=== PATIENT | male | born 1995 | race African-American/Black ===

== ENCOUNTER 2018-04-23 07:45 | Emergency (ER) | payer BC ==
[~2018-04-23] VITALS: Ht 177.8 cm; Wt 68.0 kg
[~2018-04-23 07:45] MED LIST: MOTRIN400 MG PO
[2018-04-23 08:18] LABS: BILIRUBIN NEGATIVE (NEGATIVE); BLOOD NEGATIVE (NEGATIVE); CLARITY CLEAR (CLEAR); COLOR YELLOW (YELLOW); GLUCOSE NEGATIVE (NEGATIVE); KETONE NEGATIVE (NEGATIVE); LEUKO ESTERASE NEGATIVE (NEGATIVE); NITRITE NEGATIVE (NEGATIVE); SPECIFIC GRAVITY 1.015 (1.005-1.030); UROBILINOGEN 0.2 E.U./dl (0.2-1.0)
[2018-04-23 08:43] LABS: BACTERIA TRACE; MUCOUS 1+
[2018-04-26 12:11] LABS: GONOCOCCUS BY NAA Negative (Negative)
== END 2018-04-23 08:39 | disposition home or self-care (01) ==
LOC: ED 07:45
PROVIDERS: Emergency Medicine
DX: R30.0 Dysuria (principal); Z11.3 Encounter for screening for infections with a predominantly sexual mode of transmission

== ENCOUNTER 2018-06-07 20:01 | Emergency (ER) | payer BC ==
[~2018-06-07] VITALS: Ht 177.8 cm; Wt 68.0 kg
[2018-06-07] MEDS ORDERED: AMOXICILLIN500 M3 PO (21:31)
[2018-06-07] MEDS ORDERED: ZOFRAN4 MG PO (21:31)
== END 2018-06-07 21:45 | disposition home or self-care (01) ==
LOC: ED 20:01
DX: J02.9 Acute pharyngitis, unspecified (principal); F17.200 Nicotine dependence, unspecified, uncomplicated; Z90.89 Acquired absence of other organs

== ENCOUNTER 2019-09-19 13:38 | Emergency (ER) | payer OTHER ==
[~2019-09-19 13:38] MED LIST changes: +AMOXICILLIN500 M3 PO; +ZOFRAN4 MG PO
[2019-09-19] MEDS ORDERED: DOXYCYCLINE100 M3 PO (14:11)
[2019-09-19 14:50] LABS: BILIRUBIN 1+ (NEGATIVE); BLOOD NEGATIVE (NEGATIVE); CLARITY SL CLOUDY (CLEAR); COLOR YELLOW (YELLOW); GLUCOSE NEGATIVE (NEGATIVE); KETONE NEGATIVE (NEGATIVE); LEUKO ESTERASE NEGATIVE (NEGATIVE); NITRITE NEGATIVE (NEGATIVE); PH 6.5 (5.0-9.0); UROBILINOGEN 0.2 E.U./dl (0.2-1.0); WBC 0-2 wbc/hpf (0-5)
[2019-09-19 14:51] LABS: BACTERIA TRACE; EPITHELIAL CELLS 0-2; MUCOUS 1+
== END 2019-09-19 16:08 | disposition home or self-care (01) ==
LOC: ED 13:38
PROVIDERS: Physician Assistant
DX: R39.15 Urgency of urination (principal); R30.9 Painful micturition, unspecified; Z20.2 Contact with and (suspected) exposure to infections with a predominantly sexual mode of transmission